=== PATIENT | male | born 1980 | race African-American/Black ===

== ENCOUNTER 2020-08-04 08:02 | Emergency (ER) | payer MEDICAID, OTHER ==
[~2020-08-04] VITALS: Ht 190.5 cm; Wt 113.4 kg
[2020-08-04 08:25] VITALS: BP 142/88
[2020-08-04] MEDS ORDERED: cefTRIAXone SOD 1,000 MG VL IM ONE ×2 (08:30→09:30)
[2020-08-04] MEDS ORDERED: LIDOCAINE 1% HCL (LOCAL ANESTH.) INJ 20ML MDV IJ ONE (08:30)
[2020-08-04] MEDS ORDERED: KETOROLAC TROMETH 60MG/2ML VIAL IM ONE ×2 (08:30→09:30)
[2020-08-04] MEDS ORDERED: KETOROLAC TROMETH 30 MG/ML 1ML VIAL IV ONE (09:00)
[2020-08-04] MEDS ORDERED: cefTRIAXone 1GM/50ML D5W 50 ML IV ONE (09:00)
[2020-08-04] MEDS ORDERED: NEOMYCIN-BACITRACIN-POLYM UNITDOSE PKG TOP OINT TOP ONE (09:15)
== END 2020-08-04 10:07 | disposition left against medical advice (07) ==
LOC: EDBD 08:02 → ER 08:02 → EDSEX 08:02 → ER 10:07
DX: S41.112A Laceration without foreign body of left upper arm, initial encounter (principal); S20.212A Contusion of left front wall of thorax, initial encounter; S09.8XXA Other specified injuries of head, initial encounter; S60.512A Abrasion of left hand, initial encounter; R07.9 Chest pain, unspecified; V43.52XA Car driver injured in collision with other type car in traffic accident, initial encounter; Y93.89 Activity, other specified; Y92.488 Other paved roadways as the place of occurrence of the external cause; Y99.8 Other external cause status
CPT/HCPCS: 12002; 70450; 71046; 96372; 99284; J0696; J1885